=== PATIENT | male | born 1965 | race African-American/Black ===

== ENCOUNTER 2018-10-21 14:01 | Emergency (ER) | payer BC ==
[~2018-10-21] VITALS: Ht 190.5 cm; Wt 95.0 kg
[2018-10-21 17:58] VITALS: BP 142/83
== END 2018-10-21 17:59 | disposition home or self-care (01) ==
LOC: ER 14:01
DX: J06.9 Acute upper respiratory infection, unspecified (principal); J04.0 Acute laryngitis; I10 Essential (primary) hypertension; E11.9 Type 2 diabetes mellitus without complications
CPT/HCPCS: 71045; 99283

== ENCOUNTER 2024-04-08 01:48 | Inpatient (IN) | payer BC, OTHER ==
[~2024-04-08] VITALS: Ht 190.5 cm; Wt 89.8 kg
[2024-04-08] MEDS: FAMOTIDINE 20MG TABLET PO ONE (03:46)
[2024-04-08] MEDS: ONDANSETRON 4MG ODT PO ONE (03:46)
[2024-04-08] MEDS: MAGNESIUM/ALUMINUM HYDROXIDE/SIMETHICONE 30ML UDC PO ONE (03:46)
[2024-04-08 03:47] LABS: BASOPHILS % 0.8 % (0.0-2.0); EOSINOPHILS % 0.3 % (0.0-5.0); HEMATOCRIT. 45.7 % (42.0-52.0); HEMOGLOBIN. 16.2 g/dL (14.0-18.0); LYMPHOCYTES % 26.5 % (20.0-50.0); MEAN CORPUSCULAR HEMOGLOBIN 30.9 pg (28.0-32.0); MEAN CORPUSCULAR HGB CONC 35.4 g/dL (31.0-37.0); MEAN CORPUSCULAR VOLUME 87.4 fL (80.0-94.0); MEAN PLATELET VOLUME 8.5 fl (7.4-10.4); MONOCYTES % 9.4 % (2.0-8.0); PLATELET 314 x1000/uL (130-400); RED BLOOD CELL COUNT 5.23 mill/uL (4.7-6.1); RED CELL DISTRIBUTION WIDTH 12.7 % (11.6-14.6); WHITE BLOOD COUNT 9.6 x1000/uL (4.5-11.0)
[2024-04-08] MEDS: METOPROLOL TARTRATE 5MG/5ML VIAL IV SCH (03:47)
[2024-04-08 03:54] LABS: CHLORIDE 97 mEq/L (98-107); POTASSIUM 3.8 mEq/L (3.5-5.1); SODIUM 135 mEq/L (136-145)
[2024-04-08 03:55] LABS: CALCIUM 9.8 mg/dL (8.7-10.4); CARBON DIOXIDE 26 mEq/L (21-32)
[2024-04-08 04:00] LABS: CREATININE 1.3 mg/dL (0.6-1.3); GLUCOSE 261 mg/dL (70-105); UREA NITROGEN BLOOD 18 mg/dL (9-23)
[2024-04-08 04:01] LABS: LACTIC ACID 2.2 mmol/L (0.4-2.0)
[2024-04-08 04:02] LABS: ALANINE AMINOTRANSFERASE 18 IU/L (10-49); ALBUMIN 4.2 g/dL (3.2-4.8); ASPARTATE AMINOTRANSFERASE 15 IU/L (<34); BILIRUBIN TOTAL 3.8 mg/dL (0.1-1.0); PROTEIN TOTAL 7.1 g/dL (6.0-8.3)
[2024-04-08 04:11] LABS: TROPONIN I HIGH SENSITIVITY < 4 ng/L (3.0-53)
[2024-04-08] MEDS: METOPROLOL TARTRATE 50MG TABLET PO ONE (04:42)
[2024-04-08] MEDS: SODIUM CHLORIDE 0.9% 250 ML IV ONE (05:00)
[2024-04-08] MEDS ORDERED: ACETAMINOPHEN 325MG TABLET PO PRN ×2 (05:45)
[2024-04-08] MEDS ORDERED: DEXTROSE 50% WATER 50ML SYRINGE IV PRN (05:45)
[2024-04-08] MEDS ORDERED: ONDANSETRON HCL 4MG/2ML INJ IV PRN (05:45)
[2024-04-08] MEDS ORDERED: IPRATROPIUM/ALBUTEROL 0.5-3(2.5)MG/3ML NEB HHN PRN (05:45)
[2024-04-08] MEDS ORDERED: DOCUSATE SODIUM 100MG CAPSULE PO PRN (05:45)
[2024-04-08 06:13] LABS: CLARITY URINE CLEAR (CLEAR); COLOR URINE YELLOW (YELLOW); GLUCOSE URINE 3+ (NEGATIVE); KETONES URINE 3+ (NEGATIVE); LEUKOCYTE ESTERASE URINE NEGATIVE (NEGATIVE); NITRITE URINE NEGATIVE (NEGATIVE); OCCULT BLOOD URINE NEGATIVE (NEGATIVE); PH URINE 5.5 (4.5-8.0); PROTEIN URINE TRACE (NEGATIVE); SPECIFIC GRAVITY URINE 1.034 (1.005-1.030); UROBILINOGEN URINE 0.2 E.U./dL (0.2-1.0)
[2024-04-08] MEDS: SODIUM CHLORIDE 0.9% 1,000 ML IV ONE (06:21)
[2024-04-08] MEDS: SODIUM CHLORIDE 0.9% 1,000 ML IV SCH (06:36)
[2024-04-08 06:43] LABS: CREATINE KINASE MB FRACTION 0.5 ng/mL (0.5-3.6)
[2024-04-08 06:44] LABS: CREATINE KINASE 81 IU/L (46-171); PHOSPHORUS 3.3 mg/dL (2.5-4.9)
[2024-04-08 07:07] LABS: BACTERIA URINE NONE SEEN; RBC URINE NONE SEEN /hpf (0-2); SQUAMOUS EPITHELIAL CELL URINE NONE SEEN /lpf (RARE/1+); WBC URINE 0-2 /hpf (0-2)
[2024-04-08 07:20] LABS: TROPONIN I HIGH SENSITIVITY < 4 ng/L (3.0-53)
[2024-04-08 08:00] VITALS: BP 158/119; PULSE 115; RESP 18; TEMP 36.2; O2SAT 100
[2024-04-08] MEDS ORDERED: METOPROLOL SUCCINATE 50MG ER TABLET PO SCH (09:00)
[2024-04-08] MEDS: BLOOD SUGAR DIAGNOSTIC STRIP TEST SCH (09:00)
[2024-04-08] MEDS: PANTOPRAZOLE SODIUM 40 MG/VIAL IV SCH (10:31)
[2024-04-08] MEDS: METOPROLOL SUCCINATE 50MG ER TABLET PO SCH (10:31)
[2024-04-08] MEDS: LOSARTAN 50 MG TABLET PO SCH (10:31)
[2024-04-08] MEDS: CLONIDINE 0.1MG TABLET PO PRN (10:32)
[2024-04-08] MEDS: INSULIN GLARGINE 100 UNITS/ML SUBCUT SCH (10:34)
[2024-04-08] MEDS: INSULIN LISPRO 100 UNITS/ML SUBCUT SCH (10:35)
[2024-04-08 12:00] VITALS: BP 130/105; PULSE 110; RESP 20; TEMP 36.5; O2SAT 99
[2024-04-08 16:00] VITALS: BP 121/89; PULSE 90; RESP 20; TEMP 36.6; O2SAT 100
[2024-04-08] MEDS ORDERED: HUM100IN SUBCUT (16:32)
[2024-04-08] MEDS ORDERED: ATOR10TA69 PO (16:32)
[2024-04-08] MEDS ORDERED: TOPXL5 PO (16:32)
[2024-04-08] MEDS ORDERED: LOSA50TA41 PO (16:32)
[2024-04-08] MEDS ORDERED: RIVA20TA PO (16:32)
[2024-04-08 16:49] LABS: BG BASE EXCESS 0.7 mmol/L (-2.0-3.0); BG CARBOXYHEMOGLOBIN 0.8 % (0.5-1.5); BG DEOXYHEMOGLOBIN 5.8 % (0.0-5.0); BG FRACTION INSPIRED OXYGEN 21; BG HCO3 ACT 24.1 mmol/L (21.0-28.0); BG METHEMOGLOBIN 0.3 % (0.5-1.5); BG OXYGEN SATURATION 94.1 % (94.0-98.0); BG OXYHEMOGLOBIN 93.1 % (94.0-98.0); BG PH 7.456 (7.350-7.450); BG PO2 65.6 mmHg (83.0-108.0); BG SAMPLE SITE RIGHT RADIAL; BG TOTAL HEMOGLOBIN 14.6 g/dL (13.5-17.5); BG VENT MODE ROOM AIR
[2024-04-08] MEDS ORDERED: RIVAROXABAN 10 MG TABLET PO SCH (17:00)
[2024-04-08] MEDS: RIVAROXABAN 20 MG TABLET PO SCH (18:13)
[2024-04-08 18:58] LABS: CREATINE KINASE MB FRACTION 0.9 ng/mL (0.5-3.6)
[2024-04-08 19:00] LABS: CREATINE KINASE 72 IU/L (46-171)
[2024-04-08 19:15] LABS: TROPONIN I HIGH SENSITIVITY < 4 ng/L (3.0-53)
[2024-04-08 20:00] VITALS: BP 116/76; PULSE 96; RESP 18; TEMP 36.6; O2SAT 97
[2024-04-08 20:57] LABS: CLARITY URINE CLEAR (CLEAR); COLOR URINE YELLOW (YELLOW); GLUCOSE URINE 3+ (NEGATIVE); KETONES URINE 2+ (NEGATIVE); LEUKOCYTE ESTERASE URINE NEGATIVE (NEGATIVE); NITRITE URINE NEGATIVE (NEGATIVE); OCCULT BLOOD URINE NEGATIVE (NEGATIVE); PH URINE 5.5 (4.5-8.0); PROTEIN URINE NEGATIVE (NEGATIVE); SPECIFIC GRAVITY URINE 1.025 (1.005-1.030); UROBILINOGEN URINE 0.2 E.U./dL (0.2-1.0)
[2024-04-08 21:09] LABS: *AMPHETAMINES SCREEN URINE NEGATIVE (NEGATIVE); *BARBITURATES SCREEN URINE NEGATIVE (NEGATIVE); *BENZODIAZEPINES SCREEN URINE NEGATIVE (NEGATIVE); *COCAINE SCREEN URINE NEGATIVE (NEGATIVE); CANNABINOID URINE SCREEN NEGATIVE (NEGATIVE); ECSTASY MDMA SCREEN URINE NEGATIVE (NEGATIVE); METHADONE URINE SCREEN NEGATIVE (NEGATIVE); OPIATES URINE SCREEN NEGATIVE (NEGATIVE); PHENCYCLIDINE URINE SCREEN NEGATIVE (NEGATIVE)
[2024-04-08 21:40] LABS: BACTERIA URINE TRACE; MUCUS URINE TRACE /lpf (NONE/TRACE); RBC URINE NONE SEEN /hpf (0-2); SQUAMOUS EPITHELIAL CELL URINE FEW /lpf (RARE/1+); WBC URINE 0-2 /hpf (0-2)
[2024-04-08] MEDS: ATORVASTATIN CALCIUM 10MG TABLET PO SCH (21:46)
[2024-04-09] VITALS: BP 108/67; PULSE 63; RESP 18; TEMP 36.2; O2SAT 96
[2024-04-09 04:00] VITALS: BP 114/75; PULSE 102; RESP 20; TEMP 36.8; O2SAT 96
[2024-04-09 07:53] LABS: BASOPHILS % 0.9 % (0.0-2.0); EOSINOPHILS % 1.5 % (0.0-5.0); HEMATOCRIT. 42.2 % (42.0-52.0); LYMPHOCYTES % 40.7 % (20.0-50.0); MEAN CORPUSCULAR HEMOGLOBIN 31.3 pg (28.0-32.0); MEAN CORPUSCULAR HGB CONC 35.5 g/dL (31.0-37.0); MEAN CORPUSCULAR VOLUME 88.2 fL (80.0-94.0); MEAN PLATELET VOLUME 8.3 fl (7.4-10.4); MONOCYTES % 10.5 % (2.0-8.0); NEUTROPHILS % 46.4 % (40.0-76.0); PLATELET 254 x1000/uL (130-400); RED BLOOD CELL COUNT 4.78 mill/uL (4.7-6.1); RED CELL DISTRIBUTION WIDTH 12.7 % (11.6-14.6); WHITE BLOOD COUNT 6.2 x1000/uL (4.5-11.0)
[2024-04-09 08:00] VITALS: BP 147/102; PULSE 108; RESP 18; TEMP 36.8; O2SAT 100
[2024-04-09 08:26] LABS: CARBON DIOXIDE 27 mEq/L (21-32); CHLORIDE 103 mEq/L (98-107); POTASSIUM 3.7 mEq/L (3.5-5.1); SODIUM 137 mEq/L (136-145)
[2024-04-09] MEDS: LOSARTAN 25 MG TABLET PO SCH (08:28)
[2024-04-09] MEDS: METOPROLOL TARTRATE 50MG TABLET PO SCH (08:28)
[2024-04-09 08:32] LABS: CREATININE 1.1 mg/dL (0.6-1.3); GLUCOSE 179 mg/dL (70-105); TRIGLYCERIDE 144 mg/dL (0-150); UREA NITROGEN BLOOD 13 mg/dL (9-23)
[2024-04-09 08:33] LABS: CHOLESTEROL 217 mg/dL (<200); LDL CHOLESTEROL 143 mg/dL (5-100)
[2024-04-09 08:34] LABS: HDL CHOLESTEROL 37 mg/dL (>55); T4 FREE 1.42 ng/dL (0.89-1.76); THYROID STIMULATING HORMONE 0.84 uIU/mL (0.55-4.78)
[2024-04-09] MEDS ORDERED: PANT40TA51 MT (09:21)
[2024-04-09 09:29] VITALS: BP 138/85; PULSE 88; TEMP 97; O2SAT 100
[2024-04-09 11:28] VITALS: BP 138/85; PULSE 90; RESP 18; TEMP 36.7; O2SAT 100
== END 2024-04-09 16:14 | disposition home or self-care (01) | DRG 392 ==
LOC: ER 01:48 → EDBD 01:48 → 7WST 05:01
PROVIDERS: ADMIT Internal Medicine; ATTEND Internal Medicine
DX: A08.39 Other viral enteritis (principal); I48.20 Chronic atrial fibrillation, unspecified; E78.5 Hyperlipidemia, unspecified; I10 Essential (primary) hypertension; K21.9 Gastro-esophageal reflux disease without esophagitis; Z79.01 Long term (current) use of anticoagulants; Z79.4 Long term (current) use of insulin; Z79.899 Other long term (current) drug therapy; E11.65 Type 2 diabetes mellitus with hyperglycemia
CPT/HCPCS: 36415; 36600; 71045; 76705; 80048; 80053; 80061; 80305; 81003; 82010; 82375; 82550; 82553; 82805; 82962; 83036; 83605; 83735; 83880; 83930; 84100; 84145; 84439; 84443; 84484; 85025; 93005; 99285; J1815; J2470; J3490; J7030; Q0162